=== PATIENT | male | born 1985 | race Caucasian/White ===

== ENCOUNTER 2023-04-03 21:43 | Inpatient (IN) | payer OTHER ==
[2023-04-03] MEDS ORDERED: Acetaminophen 325 MG TAB PO PRN (23:42)
[2023-04-03] MEDS ORDERED: Nitroglycerin 0.4 MG TAB (25 Tab Bottle) SL PRN (23:42)
[2023-04-03] MEDS ORDERED: Ondansetron PF 4 MG/2 ML Vial IVP PRN (23:42)
[2023-04-03] MEDS ORDERED: Dextrose 5% in Water 1,000 ML IV PRN (23:45)
[2023-04-03] MEDS ORDERED: Sodium Chloride 0.9% 1,000 ML IV SCH (23:45)
[2023-04-03] MEDS ORDERED: HumaLOG 300 UNITS/3 ML VIAL SC PRN ×2 (23:45)
[2023-04-03] MEDS ORDERED: Dextrose 50% Abboject 50 ML SYRINGE SLOW IVP PRN (23:45)
[2023-04-03] MEDS ORDERED: Morphine 2 MG/ML VIAL SLOW IVP SCH (23:59)
[2023-04-04 00:38] LABS: Troponin I Less than 0.010 ng/mL (< 0.028)
[2023-04-04] MEDS ORDERED: Morphine 2 MG/ML VIAL SLOW IVP PRN (00:55)
[2023-04-04 02:12] VITALS: BMI 36.3
[2023-04-04 05:35] LABS: #Basophils 0.1 thou/uL (0.0-0.2); #Eosinphils 0.3 thou/uL (0.0-0.7); #Monocytes 0.7 thou/uL (0.11-0.59); %Basophils 0.7 % (0.0-1.0); %Eosinophils 3.4 % (0.0-10.0); %Lymphocytes 32.4 % (21.0-51.0); %Monocytes 7.5 % (0.0-10.0); %Neutrophils 55.7 % (42.0-75.0); Hemoglobin 12.7 g/dL (14.0-18.0); Mean Corpuscular HGB CONC 34.4 g/dL (32.0-36.0); Mean Corpuscular Hemoglobin 31.1 pg (27.0-31.0); Mean Corpuscular Volume 90.4 fl (78.0-98.0); Mean Platelet Volume 12.9 fL (7.4-10.4); Platelet Count 158 10x3/uL (130-400); Red Blood Cell (RBC) Count 4.08 mill/uL (4.70-6.10)
[2023-04-04 06:27] LABS: Anion Gap 15 mmol/L (10-20); BUN (Urea Nitrogen) 18 mg/dL (8.9-20.6); Calc. Creatinine Clearance 87 mL/min (70-130); Calcium 8.4 mg/dL (7.8-10.44); Carbon Dioxide 19 mmol/L (22-29); Cardiac Risk 4.9 (Less than 4.5); Chloride 108 mmol/L (98-107); Cholesterol 132 mg/dl (< 200 Desired); Estimated GFR 52; Glucose 118 mg/dL (70-105); HDL Cholesterol 27 mg/dL (>60 Neg Risk); LDL Cholesterol, Calculated 72 mg/dL; Potassium 4.7 mmol/L (3.5-5.1); Sodium 137 mmol/L (136-145); Triglycerides 163 mg/dL (Less than 150)
[2023-04-04 06:30] LABS: Hemoglobin A1c 6.4 % (4.0-6.0); Troponin I Less than 0.010 ng/mL (< 0.028)
[2023-04-04 09:30] LABS: Amphetamine Not Detected (NotDetected); Barbiturates Screen Not Detected (NotDetected); Benzodiazepine Screen Not Detected (NotDetected); Cocaine Metabolite Screen Not Detected (NotDetected); Methadone Not Detected (NotDetected); Methamphetamine Not Detected (NotDetected); Opiate Screen Detected (NotDetected); Oxycodone Screen Not Detected (NotDetected); Phencyclidine (PCP) Not Detected (NotDetected); THC/Cannabinoid Screen Not Detected (NotDetected); Tricyclic Screen Not Detected (NotDetected)
[2023-04-04] MEDS ORDERED: Regadenoson 0.4 MG/5 ML SYRINGE ONE (09:39)
[2023-04-04] MEDS: Amlodipine 10 MG TAB PO SCH (12:05)
[2023-04-04] MEDS ORDERED: Nitroglycerin 2% Ointment 1 INCH/1 GM Packet TOP SCH (17:00)
[2023-04-04] MEDS: Nitroglycerin 2% Ointment 1 INCH/1 GM Packet TOP SCH (18:01)
[2023-04-04] MEDS: Atorvastatin Calcium 20 MG TAB PO SCH (19:39)
[2023-04-04] MEDS ORDERED: Atorvastatin Calcium 10 MG TAB PO SCH (21:00)
[2023-04-05 05:30] LABS: #Basophils 0.1 thou/uL (0.0-0.2); #Eosinphils 0.2 thou/uL (0.0-0.7); #Monocytes 0.5 thou/uL (0.11-0.59); #Neutrophils 3.5 thou/uL (1.40-6.50); %Basophils 0.7 % (0.0-1.0); %Lymphocytes 38.1 % (21.0-51.0); %Monocytes 7.8 % (0.0-10.0); %Neutrophils 50.3 % (42.0-75.0); Hemoglobin 12.9 g/dL (14.0-18.0); Mean Corpuscular HGB CONC 35.1 g/dL (32.0-36.0); Mean Corpuscular Hemoglobin 30.7 pg (27.0-31.0); Mean Platelet Volume 12.3 fL (7.4-10.4); Platelet Count 164 10x3/uL (130-400); RBC Distribution Width 11.9 % (11.5-14.5)
[2023-04-05 05:49] LABS: Mean Corpuscular Volume 87.6 fl (78.0-98.0)
[2023-04-05] MEDS: Nitroglycerin 2% Ointment 1 INCH/1 GM Packet TOP SCH ×2 (05:52→18:10)
[2023-04-05 05:55] LABS: Anion Gap 11 mmol/L (10-20); BUN (Urea Nitrogen) 20 mg/dL (8.9-20.6); Calc. Creatinine Clearance 86 mL/min (70-130); Calcium 8.4 mg/dL (7.8-10.44); Carbon Dioxide 23 mmol/L (22-29); Chloride 108 mmol/L (98-107); Estimated GFR 51; Glucose 113 mg/dL (70-105); Magnesium 1.9 mg/dL (1.6-2.6); Potassium 4.2 mmol/L (3.5-5.1); Sodium 138 mmol/L (136-145)
[2023-04-05] MEDS ORDERED: Magnesium 2 GM/50 ML(in water) 2 GM in Premix Bag 1 BAG IVPB SCH (08:00)
[2023-04-05] MEDS: Amlodipine 10 MG TAB PO SCH (09:14)
[2023-04-05] MEDS ORDERED: Communication Order-Pharmacy FS SCH (16:45)
[2023-04-05] MEDS: metFORMIN 500 MG TAB PO SCH (17:20)
[2023-04-05] MEDS ORDERED: Polyethylene Glycol 3350 17 GM Packet PO PRN (17:20)
[2023-04-05] MEDS ORDERED: Bisacodyl 5 MG TAB PO PRN (17:21)
[2023-04-05] MEDS: Atorvastatin Calcium 20 MG TAB PO SCH (20:04)
[2023-04-05] MEDS: Sodium Chloride 0.9% 1,000 ML IV SCH (23:50)
[2023-04-06] MEDS ORDERED: Melatonin 3 MG TAB PO PRN (00:25)
[2023-04-06 04:57] LABS: #Eosinphils 0.2 thou/uL (0.0-0.7); #Monocytes 0.7 thou/uL (0.11-0.59); #Neutrophils 4.7 thou/uL (1.40-6.50); %Basophils 0.5 % (0.0-1.0); %Eosinophils 2.5 % (0.0-10.0); %Lymphocytes 25.8 % (21.0-51.0); %Monocytes 8.8 % (0.0-10.0); %Neutrophils 62.3 % (42.0-75.0); Hemoglobin 12.5 g/dL (14.0-18.0); Mean Corpuscular HGB CONC 34.5 g/dL (32.0-36.0); Mean Platelet Volume 12.5 fL (7.4-10.4); Platelet Count 176 10x3/uL (130-400); RBC Distribution Width 11.9 % (11.5-14.5); Red Blood Cell (RBC) Count 4.16 mill/uL (4.70-6.10); White Blood Cell (WBC) Count 7.5 10x3/uL (4.8-10.8)
[2023-04-06] MEDS: metFORMIN 500 MG TAB PO SCH (05:02)
[2023-04-06 05:18] LABS: Anion Gap 10 mmol/L (10-20); BUN (Urea Nitrogen) 19 mg/dL (8.9-20.6); Calc. Creatinine Clearance 91 mL/min (70-130); Calcium 8.5 mg/dL (7.8-10.44); Carbon Dioxide 23 mmol/L (22-29); Chloride 107 mmol/L (98-107); Estimated GFR 54; Glucose 113 mg/dL (70-105); Magnesium 2.2 mg/dL (1.6-2.6); Potassium 4.4 mmol/L (3.5-5.1); Sodium 136 mmol/L (136-145)
[2023-04-06] MEDS: Nitroglycerin 2% Ointment 1 INCH/1 GM Packet TOP SCH (05:57)
[2023-04-06] MEDS: Amlodipine 10 MG TAB PO SCH (05:57)
[2023-04-06] MEDS: Sodium Chloride 0.9% 1,000 ML IV SCH (08:58)
[2023-04-06] MEDS ORDERED: Lidocaine 1% (PF) 30 ML VIAL ONE (09:02)
[2023-04-06] MEDS ORDERED: Heparin 10,000 UNITS/ 10 ML VIAL ONE (09:02)
[2023-04-06] MEDS ORDERED: fentaNYL 50 mcg/mL 1 mL Vial ONE (09:14)
[2023-04-06] MEDS ORDERED: Midazolam HCl 2 mg/2 ml Vial ONE (09:14)
[2023-04-06] MEDS ORDERED: Acetaminophen/Codeine 30-300mg Tablet PO PRN (10:13)
[2023-04-06] MEDS ORDERED: Sodium Chloride 0.9% 200 ML IV PRN (10:13)
[2023-04-06 12:30] VITALS: BP 149/87; TEMP 97.6
== END 2023-04-06 15:50 | disposition home or self-care (01) | DRG 287 ==
LOC: 2SW 21:43 → OBSVTOIN 04-05 15:00
PROVIDERS: ADMIT Internal Medicine; ATTEND Hospitalist
PROC: 4A023N7 Measurement of Cardiac Sampling and Pressure, Left Heart, Percutaneous Approach (ICD-10-PCS; principal; 2023-04-06)
PROC: B2111ZZ Fluoroscopy of Multiple Coronary Arteries using Low Osmolar Contrast (ICD-10-PCS; 2023-04-06)
PROC: B2151ZZ Fluoroscopy of Left Heart using Low Osmolar Contrast (ICD-10-PCS; 2023-04-06)
DX: R07.9 Chest pain, unspecified (principal); N17.9 Acute kidney failure, unspecified; E78.5 Hyperlipidemia, unspecified; I10 Essential (primary) hypertension; E11.42 Type 2 diabetes mellitus with diabetic polyneuropathy; E66.9 Obesity, unspecified; F31.9 Bipolar disorder, unspecified; F41.9 Anxiety disorder, unspecified; G47.33 Obstructive sleep apnea (adult) (pediatric); H91.90 Unspecified hearing loss, unspecified ear; F43.10 Post-traumatic stress disorder, unspecified; Z79.899 Other long term (current) drug therapy; Z79.84 Long term (current) use of oral hypoglycemic drugs; Z88.1 Allergy status to other antibiotic agents; Z88.0 Allergy status to penicillin; Z88.8 Allergy status to other drugs, medicaments and biological substances; Z82.49 Family history of ischemic heart disease and other diseases of the circulatory system; Z68.36 Body mass index [BMI] 36.0-36.9, adult
CPT/HCPCS: 36415; 36416; 78452; 80048; 80061; 80306; 83036; 83735; 84443; 84484; 85025; 93005; 93010; 93017; 93458; 96372; 96374; 96375; 99152; A9500; C1769; G0378; J1644; J1650; J2001; J2250; J2272; J2785; J3010; J3475; J7050